=== PATIENT | female | born 1960 | race Caucasian/White ===

== ENCOUNTER 2023-01-08 08:40 | Emergency (ER) | payer MEDICARE, OTHER ==
[~2023-01-08] VITALS: Ht 162.6 cm; Wt 83.9 kg
[~2023-01-08 08:40] MED LIST: ASCO-5 PO; ASPI-1822 PO; ATOR20TA PO; BACL10TA4 PO; CARB200T4 PO; DOCU-299 PO; FAMO-90 PO; MIRT-120 PO; MULT-2112 PO; NIAC500T30 PO; POTA10TA70 PO; RISP0.251 PO; ROC2I IM/IV; SYN.075 PO; TRAM-748 PO; TRAZ-343 PO; ZINC220C28 PO
[2023-01-08 08:42] VITALS: BP 186/102; PULSE 100; RESP 19; O2SAT 95
[2023-01-08 09:53] LABS: BASOPHILS % (AUTO) 0.7 % (0.0-2.0); EOSINOPHILS # (AUTO) 0.4 K/uL (0-0.4); EOSINOPHILS % (AUTO) 6.2 % (0.0-4.0); HEMATOCRIT 39.7 % (36-48); HEMOGLOBIN 12.9 g/dL (12.0-16.0); LYMPHOCYTES # (AUTO) 2.3 K/uL (2.5-16.5); LYMPHOCYTES % (AUTO) 32.7 % (20.5-51.1); MEAN CORPUSCULAR HEMOGLOBIN 31 pg (27-31); MEAN CORPUSCULAR HGB CONC 33 g/dL (33-37); MEAN CORPUSCULAR VOLUME 94.7 fL (80-94); MONOCYTES # (AUTO) 0.6 K/uL (0.8-1.0); MONOCYTES % (AUTO) 8.3 % (1.7-9.3); NEUTROPHILS # (AUTO) 3.7 K/uL (1.8-7.7); NEUTROPHILS % (AUTO) 52.1 % (42.2-75.2); PLATELET COUNT (AUTO) 251 K/uL (140-450); RED BLOOD CELL COUNT(AUTO) 4.19 MIL/uL (4.20-5.40); RED CELL DISTRIBUTION WIDTH 16.5 % (11.6-13.7)
[2023-01-08 10:13] LABS: LACTIC ACID 1.5 mmol/L (0.4-2.0)
[2023-01-08 10:23] LABS: INR 0.94 (0.8-1.2); PARTIAL THROMBOPLASTIN TIME 31.4 secs (22-35.6); PROTHROMBIN TIME 9.9 secs (10.8-13.4)
[2023-01-08 10:27] LABS: ALBUMIN 3.5 g/dL (3.4-5.0); ANION GAP 16.2 (8-16); CALCIUM 9.7 mg/dL (8.5-10.1); CARBON DIOXIDE 27.4 mmol/L (21-32); POTASSIUM 3.6 mmol/L (3.5-5.1); TOTAL BILIRUBIN 0.3 mg/dL (0.0-1.0); TOTAL PROTEIN, SERUM 7.5 g/dL (6.4-8.2)
[2023-01-08 10:31] LABS: MAGNESIUM 1.9 mg/dL (1.8-2.4); PHOSPHORUS 4.2 mg/dL (2.5-4.9)
[2023-01-08 10:32] LABS: FLU A ANTIGEN negative (NEGATIVE)
[2023-01-08 10:33] LABS: FLU B ANTIGEN negative (NEGATIVE)
[2023-01-08 11:40] LABS: BILIRUBIN,URINE NEGATIVE (NEGATIVE); BLOOD, URINE 3+ (NEGATIVE); COLOR,URINE YELLOW (YELLOW); LEUKOCYTE ESTERASE ,URINE 2+ (NEGATIVE); NITRITE, URINE POSITIVE (NEGATIVE); PROTEIN,URINE 1+ (NEGATIVE); UGLUCOSE NEGATIVE (NEGATIVE); UROBILINOGEN,URINE 0.2 EU/dL (0.2 - 1)
[2023-01-08 11:44] LABS: APPEARANCE,URINE HAZY (CLEAR)
[2023-01-08 11:50] LABS: BACTERIA,URINE 1+ /HPF (None Seen)
[2023-01-08 11:52] LABS: RBC,URINE 20-50 /HPF (0-5); WBC,URINE TOO MANY TO COUNT /HPF (0-5)
[2023-01-08 11:53] LABS: SQUAMOUS EPITHELIAL CELL,UR 0-3 (FEW) /LPF (0-3 (FEW))
[2023-01-08] MEDS ORDERED: cefTRIAXone 1,000 MG VIAL ONE (14:23)
[2023-01-08 16:33] VITALS: BP 114/78; PULSE 90; RESP 19; TEMP 99.4; O2SAT 99
== END 2023-01-08 16:38 | disposition short-term general hospital (02) ==
LOC: MED 08:40
DX: J96.01 Acute respiratory failure with hypoxia (principal); Z20.822 Contact with and (suspected) exposure to COVID-19; N39.0 Urinary tract infection, site not specified; G93.41 Metabolic encephalopathy; E87.0 Hyperosmolality and hypernatremia; E87.8 Other disorders of electrolyte and fluid balance, not elsewhere classified; R79.89 Other specified abnormal findings of blood chemistry; J45.909 Unspecified asthma, uncomplicated; E03.9 Hypothyroidism, unspecified; I13.10 Hypertensive heart and chronic kidney disease without heart failure, with stage 1 through stage 4 chronic kidney disease, or unspecified chronic kidney disease; N18.9 Chronic kidney disease, unspecified; Z86.73 Personal history of transient ischemic attack (TIA), and cerebral infarction without residual deficits; Z79.4 Long term (current) use of insulin; Z79.899 Other long term (current) drug therapy
CPT/HCPCS: 36415; 70450; 71045; 71275; 80053; 81001; 82140; 83605; 83735; 83880; 84100; 84484; 85025; 85610; 85730; 86870; 86886; 86900; 86901; 87040; 87426; 87804; 93005; 96365; 99291; J0696; Q9967

== ENCOUNTER 2023-10-06 08:24 | Emergency (ER) | payer MEDICARE, OTHER ==
[~2023-10-06] VITALS: Ht 167.6 cm; Wt 86.2 kg
[2023-10-06 08:27] VITALS: BP 124/79; PULSE 86; RESP 20; TEMP 98.7; O2SAT 94
[2023-10-06] MEDS ORDERED: cefTRIAXone 1,000 MG VIAL ONE (08:49)
[2023-10-06] MEDS: cefTRIAXone 1,000 MG in DEXT 5% MINI-BAG PLUS 50 ML IV ONE (09:00)
[2023-10-06 09:11] LABS: ANION GAP 14.4 (8-16); CALCIUM 9.5 mg/dL (8.5-10.1); CARBON DIOXIDE 25.3 mmol/L (21-32); CREATININE 0.8 mg/dL (0.6-1.3); POTASSIUM 3.7 mmol/L (3.5-5.1)
[2023-10-06] MEDS: NACL 0.9% 1,000 ML IV SCH (09:16)
[2023-10-06 09:17] LABS: BASOPHILS % (AUTO) 0.5 % (0.0-2.0); EOSINOPHILS # (AUTO) 0.2 K/uL (0-0.4); EOSINOPHILS % (AUTO) 3.3 % (0.0-4.0); HEMATOCRIT 37.6 % (36-48); HEMOGLOBIN 12.5 g/dL (12.0-16.0); LYMPHOCYTES % (AUTO) 27.9 % (20.5-51.1); MEAN CORPUSCULAR HEMOGLOBIN 31 pg (27-31); MEAN CORPUSCULAR HGB CONC 33 g/dL (33-37); MEAN CORPUSCULAR VOLUME 93.7 fL (80-94); MONOCYTES # (AUTO) 0.5 K/uL (0.8-1.0); MONOCYTES % (AUTO) 6.8 % (1.7-9.3); NEUTROPHILS # (AUTO) 4.5 K/uL (1.8-7.7); NEUTROPHILS % (AUTO) 61.5 % (42.2-75.2); PLATELET COUNT (AUTO) 256 K/uL (140-450); RED BLOOD CELL COUNT(AUTO) 4.02 MIL/uL (4.20-5.40); RED CELL DISTRIBUTION WIDTH 14.9 % (11.6-13.7); WHITE BLOOD COUNT (AUTO) 7.3 K/uL (4.8-10.8)
[2023-10-06 09:26] LABS: APPEARANCE,URINE SL CLOUDY (CLEAR); BILIRUBIN,URINE NEGATIVE (NEGATIVE); BLOOD, URINE 3+ (NEGATIVE); COLOR,URINE YELLOW (YELLOW); LEUKOCYTE ESTERASE ,URINE 3+ (NEGATIVE); NITRITE, URINE POSITIVE (NEGATIVE); PH,URINE 7.5 (5.0-9.0); PROTEIN,URINE 2+ (NEGATIVE); UGLUCOSE NEGATIVE (NEGATIVE)
[2023-10-06 09:28] LABS: LACTIC ACID 2.3 mmol/L (0.4-2.0)
[2023-10-06 09:41] LABS: RBC,URINE 11-20 (MOD) /HPF (0-5)
[2023-10-06 09:42] LABS: BACTERIA,URINE 3+ /HPF (None Seen); SQUAMOUS EPITHELIAL CELL,UR 4-10 (MOD) /LPF (0-3 (FEW)); WBC,URINE >25 (MANY) /HPF (0-5)
[2023-10-06 09:42] LABS: FLU A ANTIGEN negative (NEGATIVE); FLU B ANTIGEN NEGATIVE (NEGATIVE)
[2023-10-06 09:43] LABS: TRIPLE PHOSPHATE CRYSTAL,UR 0-5 /HPF (None Seen)
[2023-10-06] MEDS ORDERED: ACET-2619 PO (10:36)
[2023-10-06] MEDS ORDERED: AMLO10TA PO (10:36)
[2023-10-06] MEDS ORDERED: PIPERACILLIN/TAZOBACTAM 3.375 GM VIAL IV ONE (10:58)
[2023-10-06] MEDS: PIPERACILLIN/TAZOBACTAM 3.375 GM in DEXTROSE 5% 50 ML IV ONE (11:02)
[2023-10-06 13:36] VITALS: BP 129/61; PULSE 85; RESP 18; TEMP 97.6; O2SAT 96
== END 2023-10-06 13:36 | disposition short-term general hospital (02) ==
LOC: MED 08:24
DX: N39.0 Urinary tract infection, site not specified (principal); J18.9 Pneumonia, unspecified organism; Z20.822 Contact with and (suspected) exposure to COVID-19; J45.909 Unspecified asthma, uncomplicated; I25.10 Atherosclerotic heart disease of native coronary artery without angina pectoris; E11.9 Type 2 diabetes mellitus without complications; E03.9 Hypothyroidism, unspecified; Z86.73 Personal history of transient ischemic attack (TIA), and cerebral infarction without residual deficits; Z87.448 Personal history of other diseases of urinary system; Z79.899 Other long term (current) drug therapy; Z79.82 Long term (current) use of aspirin
CPT/HCPCS: 36415; 70450; 71045; 80048; 81001; 83605; 83880; 84484; 85025; 87040; 87086; 87186; 87426; 87804; 93005; 96365; 96367; 99285; J0696; J2543; J7030